=== PATIENT | male | born 1970 | race Caucasian/White ===

== ENCOUNTER 2019-05-26 19:08 | Emergency (ER) | payer OTHER, SELFPAY ==
[2019-05-26 19:16] VITALS: BP 143/93; PULSE 72; RESP 14; TEMP 36.4; O2SAT 100
--- NOTE | 2019-05-26 19:51 | ED.GENADULT ---
HPI - General Adult General Chief complaint: Ear Stated complaint: Ear infection Time Seen by Provider: 05/26/19 19:51 Source: patient Mode of arrival: ambulatory Limitations: no limitations History of Present Illness HPI narrative: 48-year-old male patient presents to the [facility] with complaints of right ear pain that started about 3 to 4 days ago. Patient denies any fevers, runny nose, stuffy nose, sore throat, coughing or chest pain. Patient states he is tried some [id number] earache relief but states that every time he chews he feels like there is something stabbing him in the ear. Related Data Home Medications Medication Instructions Recorded Confirmed lisinopril 10 mg PO DAILY 05/26/19 05/26/19 Allergies Allergy/AdvReac Type Severity Reaction Status Date / Time No Known Allergies Allergy Verified 05/26/19 19:29 Review of Systems Review of Systems: Narrative: CONSTITUTIONAL: Denies fever, chills, or sweats. EYES: Denies visual changes, redness, or discharge. ENT: Denies rhinorrhea, congestion, sore throat, positive right ear pain otalgia. CARDIOVASCULAR: Denies chest pain, palpitations, or edema. RESPIRATORY: Denies cough or dyspnea. GASTROINTESTINAL: Denies abdominal pain, nausea, vomiting, or diarrhea. GENITOURINARY: Denies dysuria or hematuria. SKIN: Denies rash or itching. MUSCULOSKELETAL: Denies back pain, joint pain, or myalgia. NEUROLOGIC: Denies headache, numbness, or weakness. PSYCHIATRIC: Denies anxiety or depression. PMFSH Comments At the time of my signature I agree with nursing past medical history, surgical, social, and family history. There is no relevant family history pertinent to the presenting complaint. Exam Narrative: Exam Narrative: GENERAL: Well-appearing, well-nourished, and in no acute distress. HEAD: Normocephalic, atraumatic. EYES: PERRLA and EOMI. ENT: Nares clear, no rhinorrhea or epistaxis. Mucous membranes moist. Posterior pharynx no erythema, tonsillar margin, exudates or lesions present. The right canal does have some erythema and a couple little cluster of punctate pus pockets noted at the 7:00 area of the canal. There is no active discharge at this time. TM appears to be intact with no erythema. NECK: Supple. No lymphadenopathy CHEST: Clear to auscultation. No respiratory distress. HEART: Regular rate and rhythm. No murmur heard. Normal peripheral pulses. ABDOMEN: Soft, nontender, nondistended, normal active bowel sounds. EXTREMITIES: Normal range of motion. No edema. SKIN: Warm, dry, no rash. NEURO: No focal deficits. Alert and oriented x3. Course Vital Signs Vital signs: Vital Signs Temperature 36.4 C L 05/26/19 19:16 Pulse Rate 72 05/26/19 19:16 Respiratory Rate 14 05/26/19 19:16 Blood Pressure 143/93 H 05/26/19 19:16 Pulse Oximetry 100 05/26/19 19:16 Temperature 36.4 C L 05/26/19 19:16 Pulse Rate 72 05/26/19 19:16 Respiratory Rate 14 05/26/19 19:16 Blood Pressure 143/93 H 05/26/19 19:16 Pulse Oximetry 100 05/26/19 19:16 Vital signs reviewed. The patient has been informed that they may have pre-hypertension or Hypertension based on a BP reading in the department. I recommend that the patient call the primary care provider listed on their discharge instructions or a physician of their choice this week to arrange follow up for further evaluation of possible pre-hypertension or Hypertension Medical Decision Making Differential Diagnosis Differential Diagnosis: Differential diagnosis: Otitis media, otitis externa, perforated TM, infection of the outer ear, foreign body or cerumen impaction, ruptured TM, acute mastoiditis, ligament otitis externa, dehydration, pneumonia, sepsis, dental or intraoral infection, TMJ dysfunction Plan of care for patient is discharged home with antibiotic eardrops to help with the infection. Discussed with him he can take Tylenol and ibuprofen as needed for pain and he needs to follow-up with hi
== END 2019-05-26 20:00 | disposition home or self-care (01) ==
PROVIDERS: Emergency Provider Nurse Practitioner Family
DX: H60.501 Unspecified acute noninfective otitis externa, right ear (principal)
CPT/HCPCS: 99203; G0463